=== PATIENT | female | born 1955 | race Hispanic/Latino ===

== ENCOUNTER 2017-09-23 15:48 | Outpatient (CLI) | payer OTHER ==
--- NOTE | 2017-09-23 17:28 | MRI ---
EXAM: MRI LUMBAR SPINE WITHOUT CONTRAST 09/23/17 HISTORY: Right sided sciatica. Right leg pain, extending from the low back to the knee. COMPARISON: None. TECHNIQUE: Lumbar spine MRI is performed without intravenous gadolinium administration. Multisequential, multipl morgan imaging is performed. FINDINGS: Appropriate T1 marrow signal intensity lumbar vertebrae. Vertebral body height is maintained. No frac ture. No significant STIR hyperintensity to suggest edema or ligamentous injury. Symmetric signal intensity of the psoas muscles. Appropriate signal intensity or the visualized solid organs. The conus medullaris terminates at the L1 level. T12-L1: Adequate disc hydration. No significant central canal stenosis or foraminal narrowing. L1-L2: Adequate disc hydration. Right paracentral/subarticular disc bulge. Mild stenosis without sign ificant mass effect or obscuration of the traversing right L2 nerve root. Overall mild central canal stenosis. Neural foramina are patent bilaterally. L2-L3: Adequate disc hydration. No significant posterior disc abnormality. Minimal left and right par acentral disc bulges. No high grade central canal stenosis. Mild bilateral foraminal narrowing. L3-L4: Desiccation with mild loss of disc space height. Minimal left and right paracentral disc bulge s. Minimal central canal stenosis. Mild bilateral foraminal narrowing. L4-L5: Desiccation with mild loss of disc space height. There is a generalized disc bulge with disc m aterial encroaching upon both subarticular zones. Mild central canal stenosis. Narrowing of both suba rticular zones with minimal mass effect upon bilateral traversing L5 nerve roots. Neither traversing L5 nerve root is completely obscured. There is partial obscuration of the traversing left L5 nerve ro ot. Mild right and mild to moderate left foraminal narrowing due to posterior element hypertrophy and disc material. L5-S1: Desiccation without significant loss of disc space height. No significant central canal stenos is. Moderate bilateral foraminal narrowing. IMPRESSION: Degenerative change in the lumbar spine as detailed above. POS: BLAKE
== END 2017-09-23 15:49 | disposition home or self-care (01) ==
LOC: MRI 15:48
PROVIDERS: ATTEND Family Medicine
DX: M54.31 Sciatica, right side (principal); M47.896 Other spondylosis, lumbar region
CPT/HCPCS: 72148

== ENCOUNTER 2018-05-20 10:26 | Outpatient (CLI) | payer OTHER | END 2018-05-20 10:27 | disposition home or self-care (01) | LOC: BICMAMMO 10:26 | PROVIDERS: ATTEND Family Medicine | DX: Z12.31 Encounter for screening mammogram for malignant neoplasm of breast (principal) | CPT/HCPCS: 77063; 77067 ==

== ENCOUNTER 2019-08-13 07:46 | Outpatient (CLI) | payer OTHER ==
--- NOTE | 2019-08-13 08:20 | MMO ---
Bilateral MAMMO Bilat Screen [facility]. CLINICAL HISTORY: Patient is 64 years old and is seen for screening. The patient has no family history of breast cancer. The patient has a history of uterine cancer at age 28. VIEWS: The views performed were: bilateral craniocaudal with tomosynthesis and bilateral mediolateral oblique with tomosynthesis. FILMS COMPARED: The present examination has been compared to prior imaging studies performed at [facility] on 05/20/2018, and at [facility] on 10/12/2014 and 10/20/2015. This study has been interpreted with the assistance of computer-aided detection. MAMMOGRAM FINDINGS: There are scattered fibroglandular densities. There are no suspicious masses, suspicious calcifications, or new areas of architectural distortion. IMPRESSION: THERE IS NO MAMMOGRAPHIC EVIDENCE OF MALIGNANCY. A ROUTINE FOLLOW-UP MAMMOGRAM IN 1 YEAR IS RECOMMENDED. THE RESULTS OF THIS EXAM WERE SENT TO THE PATIENT. ACR BI-RADS Category 1 - Negative MAMMOGRAPHY NOTE: 1. A negative mammogram report should not delay a biopsy if a dominant of clinically suspicious mass is present. 2. Approximately 10% to 15% of breast cancers are not detected by mammography. 3. Adenosis and dense breasts may obscure an underlying neoplasm. Reported by: JAYLA JACOB MD Electonically Signed: [id number]
== END 2019-08-13 07:47 | disposition home or self-care (01) ==
LOC: BICMAMMO 07:46
PROVIDERS: ATTEND Family Medicine
DX: Z12.31 Encounter for screening mammogram for malignant neoplasm of breast (principal); Z85.42 Personal history of malignant neoplasm of other parts of uterus
CPT/HCPCS: 77063; 77067

== ENCOUNTER 2020-10-09 11:12 | Outpatient (CLI) | payer OTHER | END 2020-10-09 11:13 | disposition home or self-care (01) | LOC: BICMAMMO 11:12 | PROVIDERS: ATTEND Family Medicine | DX: Z12.31 Encounter for screening mammogram for malignant neoplasm of breast (principal); Z85.42 Personal history of malignant neoplasm of other parts of uterus | CPT/HCPCS: 77063; 77067 ==

== ENCOUNTER 2022-08-07 08:29 | Outpatient (CLI) | payer OTHER | END 2022-08-07 08:30 | disposition home or self-care (01) | LOC: RAD 08:29 | PROVIDERS: ATTEND Specialist | DX: R13.10 Dysphagia, unspecified (principal) | CPT/HCPCS: 74220 ==